=== PATIENT | female | born 1965 | race Caucasian/White ===

== ENCOUNTER 2017-07-25 01:43 | Emergency (ER) | payer OTHER ==
[~2017-07-25] VITALS: Ht 162.6 cm; Wt 65.4 kg
[2017-07-25 01:49] VITALS: TEMP 36.5; O2SAT 97; Ht 162.6 cm; Wt 65.4 kg
--- NOTE | 2017-07-25 01:58 | EMERGENCY ROOM VISIT NOTE ---
History Report prepared by Lakshmi: Dickson Danielle Under the Supervision of: Dr. Dionte Tuttle D.O. First contact with patient: 01:49 Chief Complaint: SHORTNESS OF BREATH Stated Complaint: SHORT OF BREATH History of Present Illness The patient is a 51 year old female who presents to the Emergency Room with complaints of shortness of breath that began a couple of hours ago. She has a past medical history of chronic bronchitis. At this time, the patient was with her family at [facility]. They were sitting playing a board game with a propane stove burning next to them for heat. Afterward, she began to cough and have chest tightness. This then worsened and she started to wheeze. She received a DuoNeb and albuterol en route via EMS. She feels better now, and has no other complaints. She is still mildly short of breath. Source of History: patient Onset: a couple of hours ago Position: other (Respiratory system) Symptom Intensity: moderate Quality: other (Shortness of breath) Timing: other (Improving) Associated Symptoms: + cough, + chest pain (tightness) Note: She denies any other symptoms. Review of Systems See HPI for pertinent positives and negatives. A total of ten systems were reviewed and were otherwise negative. Past Medical & Surgical Medical Problems: (1) Chronic bronchitis Family History Omitted secondary to the patient's age. Social History Smoking Status: Never Smoker Smokeless Tobacco Use: No Drug Use: none Marital Status: Housing Status: lives with family Occupation Status: employed Current/Historical Medications Scheduled Lisinopril/Hctz (Zestoretic 20MG/12.5MG), 1 TAB PO DAILY Scheduled PRN Albuterol Hfa (Ventolin Hfa), 2 PUFFS INH Q6H PRN for SOB/Wheezing Allergies Coded Allergies: No Known Allergies (Unverified , 07/25/17) Physical Exam Vital Signs Date Time Temp Pulse Resp B/P (MAP) Pulse Ox O2 Delivery O2 Flow Rate FiO2 07/25/17 01:52 112 07/25/17 01:49 97 Room Air 07/25/17 01:49 97 Room Air 07/25/17 01:49 36.5 104 17 135/93 97 Room Air Physical Exam GENERAL: Awake, alert, well-appearing, in no distress HENT: Normocephalic, atraumatic. Oropharynx unremarkable. EYES: Normal conjunctiva. Sclera non-icteric. NECK: Supple. No nuchal rigidity. FROM. No JVD. RESPIRATORY: Mild wheezing and crackles to the bilateral bases. CARDIAC: Regular rate, normal rhythm. Extremities warm and well perfused. Pulses equal. ABDOMEN: Soft, non-distended. No tenderness to palpation. No rebound or guarding. No masses. RECTAL: Deferred. MUSCULOSKELETAL: Chest examination reveals no tenderness. The back is symmetrical on inspection without obvious abnormality. There is no CVA tenderness to palpation. No joint edema. LOWER EXTREMITIES: Calves are equal size bilaterally and non-tender. No edema. No discoloration. NEURO: Normal sensorium. No sensory or motor deficits noted. SKIN: No rash or jaundice noted. Medical Decision & Procedures ER Provider Diagnostic Interpretation: Radiology results as stated below per my review and radiologist interpretation: CHEST X-RAY 1 VIEW: Negative for infiltrate. per hi Laboratory Results 07/25/17 02:08 Red Blood Count 4.30, Mean Corpuscular Volume 87.9, Mean Corpuscular Hemoglobin 28.4, Mean Corpuscular Hemoglobin Concent 32.3, Mean Platelet Volume 9.6, Neutrophils (%) (Auto) 57.8, Lymphocytes (%) (Auto) 19.1, Monocytes (%) (Auto) 8.0, Eosinophils (%) (Auto) 14.6, Basophils (%) (Auto) 0.4, Neutrophils # (Auto ) 4.38, Lymphocytes # (Auto) 1.45, Monocytes # (Auto) 0.61, Eosinophils # (Auto ) 1.11, Basophils # (Auto) 0.03 07/25/17 02:08 Test 07/25/17 02:08 White Blood Count 7.59 K/uL (4.8-10.8) Red Blood Count 4.30 M/uL (4.2-5.4) Hemoglobin 12.2 g/dL (12.0-16.0) Hematocrit 37.8 % (37-47) Mean Corpuscular Volume 87.9 fL (80-100) Mean Corpuscular Hemoglobin 28.4 pg (25-34) Mean Corpuscular Hemoglobin Concent 32.3 g/dl (32-36) Platelet Count 264 K/uL (130-400) Mean Platelet Volume 9.6 fL (7.4-10.4) Neutrophils (%) (Auto) 57.8 % Lymphocytes (%) (Auto) 19.1 % Monocytes (%) (Auto) 8.0 % Eosinophils (%) (Auto) 14.6 % Basophils (%) (Auto) 0.4 % Neutrophils # (Auto) 4.38 K/uL (1.4-6.5) Lymphocytes # (Auto) 1.45 K/uL (1.2-3.4) Monocytes # (Auto) 0.61 K/uL (0.11-0.59) Eosinophils # (Auto) 1.11 K/uL (0-0.5) Basophils # (Auto) 0.03 K/uL (0-0.2) RDW Standard Deviation 41.8 fL (36.4-46.3) RDW Coefficient of Variation 13.1 % (11.5-14.5) Immature Granulocyte % (Auto) 0.1 % Immature Granulocyte # (Auto) 0.01 K/uL (0.00-0.02) Carboxyhemoglobin 0.0 % THgb Anion Gap 7.0 mmol/L (3-11) Est Creatinine Clear Calc Drug Dose 59.4 ml/min Estimated GFR () 77.6 Estimated GFR (Non- 66.9 BUN/Creatinine Ratio 18.0 (10-20) Calcium Level 8.4 mg/dl (8.5-10.1) Total Bilirubin 0.1 mg/dl (0.2-1) Aspartate Amino Transf (AST/SGOT) 11 U/L (15-37) Alanine Aminotransferase (ALT/SGPT) 15 U/L (12-78) Alkaline Phosphatase 79 U/L (45-117) Total Protein 7.5 gm/dl (6.4-8.2) Albumin 3.5 gm/dl (3.4-5.0) Globulin 4.0 gm/dl (2.5-4.0) Albumin/Globulin Ratio 0.9 (0.9-2) Laboratory results reviewed by me ECG Indication: SOB/dyspnea Rate (beats per minute): 106 Rhythm: sinus tachycardia Findings: no acute ischemic change, other (Normal intervals, normal axis) ED Course 0149: The patient was evaluated in room A10. A complete history and physical exam was performed. 0330: I reevaluated the patient. She is resting in no distress. Discussed results and discharge instructions: She verbalized understanding and agreement. The patient is ready for discharge. Medical Decision Differential diagnosis: Etiologies such as infections, reactive airway disease, pneumonia, pneumothorax , COPD, CHF, cardiac ischemia, pulmonary embolism, musculoskeletal, gastrointestinal, as well as others were entertained. Patient feels much better on repeat examination at 3:30 AM she is resting in no distress not tachycardic not hypoxic. I do not suspect pulmonary embolism she has no evidence of carbon monoxide poisoning. Patient states she feels much improved has an inhaler but needs a refill. I discussed the follow-up workup with the patient she would like to be discharged Medication Reconcilliation Current Medication List: was personally reviewed by me Blood Pressure Screening Patient's blood pressure: Normal blood pressure Blood pressure disposition: Did not require urgent referral Impression Primary Impression: Acute dyspnea Scribe Attestation The scribe's documentation has been prepared under my direction and personally reviewed by me in its entirety. I confirm that the note above accurately reflects all work, treatment, procedures, and medical decision making performed by me. Departure Information Dispostion Home / Self-Care Prescriptions Albuterol Hfa (VENTOLIN HFA) 200 Puffs/82147 Mcg Aers 2-4 PUFFS INH Q6H, #1 Prov: Dionte Tuttle, DO 07/25/17 Forms HOME CARE DOCUMENTATION FORM, IMPORTANT VISIT INFORMATION Patient Instructions ED Bronchitis Asthmatic, My [facility]
[2017-07-25 02:15] LABS: BASO % 0.4 %; BASO ABS # 0.03 K/uL (0-0.2); COMPLETE YES; EOS % 14.6 %; HEMATOCRIT 37.8 % (37-47); IG% 0.1 %; LYMPH % 19.1 %; LYMPH ABS # 1.45 K/uL (1.2-3.4); MEAN CELL VOLUME 87.9 fL (80-100); MEAN CORPUSCULAR HEMOGLOBIN 28.4 pg (25-34); MEAN CORPUSCULAR HGB CONC 32.3 g/dl (32-36); MEAN PLATELET VOLUME 9.6 fL (7.4-10.4); NEUT % 57.8 %; PLATELET COUNT 264 K/uL (130-400); WHITE BLOOD COUNT 7.59 K/uL (4.8-10.8)
[2017-07-25 02:33] LABS: CALCIUM 8.4 mg/dl (8.5-10.1); CREATININE 0.99 mg/dl (0.60-1.20)
[2017-07-25] MEDS ORDERED: LISI-787 PO (02:40)
[2017-07-25] MEDS ORDERED: VNTHFA/IN INH ×2 (02:40→03:34)
[2017-07-25 03:21] LABS: ALB/GLOB RATIO 0.9 (0.9-2)
[2017-07-25 03:30] VITALS: BP 112/73; PULSE 107; O2SAT 94
--- NOTE | 2017-07-25 06:57 | DIAGNOSTIC IMAGING REPORT ---
CHEST ONE VIEW PORTABLE CLINICAL HISTORY: sob dyspnea COMPARISON STUDY: No previous studies for comparison. FINDINGS: The bones soft tissues and hemidiaphragms are normal. The cardiomediastinal silhouette is normal. The lungs are clear. The pulmonary vasculature is normal. IMPRESSION: Negative chest. The above report was generated using voice recognition software. It may contain grammatical, syntax or spelling errors. Electronically signed by: Leif Carrington M.D. 07/25/2017 6:56 AM Dictated Date/Time: 07/25/2017 6:56 AM
== END 2017-07-25 03:55 | disposition home or self-care (01) ==
LOC: C.EDA 01:46
DX: R06.00 Dyspnea, unspecified (principal); J42 Unspecified chronic bronchitis; Z79.899 Other long term (current) drug therapy